=== PATIENT | female | born 1980 | race Caucasian/White ===

== ENCOUNTER → 2019-11-14 10:15 | Outpatient (BNVA) | payer OTHER, SELFPAY | PROVIDERS: Family Provider Internal Medicine; PCP Registered Nurse; Visit Provider Internal Medicine Rheumatology | DX: M25.50 Pain in unspecified joint (principal); Z79.899 Other long term (current) drug therapy; M79.7 Fibromyalgia; M77.11 Lateral epicondylitis, right elbow; Z87.59 Personal history of other complications of pregnancy, childbirth and the puerperium; R76.8 Other specified abnormal immunological findings in serum; Z79.1 Long term (current) use of non-steroidal anti-inflammatories (NSAID) | CPT/HCPCS: 36415; 80076; 81001; 82306; 82565; 82570; 84156; 85025; 85651; 86140; 86160; 86235; 99203 ==

== ENCOUNTER → 2020-01-02 09:49 | Outpatient (BNVA) | payer OTHER, SELFPAY | PROVIDERS: Family Provider Internal Medicine; PCP Registered Nurse; Visit Provider Internal Medicine Rheumatology | DX: M25.50 Pain in unspecified joint (principal); R76.8 Other specified abnormal immunological findings in serum; M79.7 Fibromyalgia; M77.11 Lateral epicondylitis, right elbow; Z79.1 Long term (current) use of non-steroidal anti-inflammatories (NSAID) | CPT/HCPCS: 99214 ==

== ENCOUNTER 2023-05-04 11:22 | Outpatient (CLI) | payer OTHER, SELFPAY ==
[2023-05-04 12:39] LABS: Basophils % 0.4 %; Eosinophils # 0.1 10^3/uL (0.0-0.8); Eosinophils % 1.4 %; Hematocrit 42.8 % (36-47); Lymphocytes # 2.4 10^3/uL (0.8-4.8); Mean Corpuscular HGB Conc 34.6 g/dL (30-55); Mean Corpuscular Hemoglobin 29.8 pg (27-33); Mean Corpuscular Volume 86.1 fl (85-98); Mean Platelet Volume 11.8 fL (7.4-10.4); Monocytes # 0.6 10^3/uL (0.2-0.9); Monocytes % 7.8 %; Neutrophils # 4.82 10^3/uL (1.8-7.7); Nucleated Red Blood Cells % 0 %; Platelet Count 206 10^3/cmm (157-399); Red Blood Count 4.97 10^6/uL (3.85-5.65); White Blood Count 8.03 10^3/uL (3.29-11.43)
[2023-05-04 12:58] LABS: Alanine Aminotransferase 37 U/L (0-33); Albumin Level 4.6 g/dL (3.5-5.2); Alkaline Phosphatase 70 U/L (35-105); Aspartate Amino Transferase 27 U/L (0-32); Glomerular Filtration Rate 109.1 mL/min (90-130); Total Bilirubin 0.5 mg/dL (0.15-1.2); Total Protein 7.6 g/dL (6.6-8.7)
[2023-05-05 14:46] LABS: Complement C3 122 mg/dL (90-180); Immunoglobulin IGG 1095 mg/dL (700-1600); Immunoglobulin IGM 114 mg/dL (40-230); Thyroid Stimulating Hormone 2.08 uIU/mL (0.27-4.20)
== END 2023-05-04 11:23 | disposition home or self-care (01) ==
LOC: LAB 11:25
PROVIDERS: PCP Registered Nurse; Visit Provider Internal Medicine Rheumatology
DX: R76.8 Other specified abnormal immunological findings in serum (principal); M79.7 Fibromyalgia; M32.9 Systemic lupus erythematosus, unspecified; B99.9 Unspecified infectious disease
CPT/HCPCS: 36415; 80076; 82565; 82784; 84439; 84443; 85025; 86140; 86160

== ENCOUNTER 2023-06-01 11:21 | Outpatient (CLI) | payer OTHER, SELFPAY ==
--- NOTE | 2023-06-01 11:27 | XR_ITS ---
WS: [id number] Lumbar spine, 3 views, 06/01/2023 Clinical Data: M54.9 - Dorsalgia, unspecified Comparison: None. Findings: No compression fractures or subluxation is seen. There is minimal anterior spurring L3-L5. No disc sp stephanie narrowing is seen. The transverse processes and SI joints are normal. There are cholecystectomy clips in the right upper quadrant. 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
--- NOTE | 2023-06-01 11:27 | XR_ITS ---
WS: [id number] Cervical spine, 3 views, 06/01/2023 Clinical Data: M54.9 - Dorsalgia, unspecified Comparison: None. Findings: No compression fractures are seen. The disc heights are normal. There is minimal anterior s purring at C5-C6 with disc space narrowing at C5-C6. There is no prevertebral soft tissue swelling. T he odontoid is unremarkable. The soft tissues of the neck and the lung apices are normal. Impression: Degenerative disc narrowing at C5-C6 with minimal anterior spurring.
--- NOTE | 2023-06-01 11:27 | XR_ITS ---
WS: [id number] Thoracic spine, 3 views, 06/01/2023 Clinical Data: M54.9 - Dorsalgia, unspecified Comparison: None. Findings: No compression fractures are seen. The disc heights are normal. There is a gentle dextroscoliosis. The paravertebral regions are normal. There are right upper quadra nt clips from a cholecystectomy. Impression: Minimal dextroscoliosis of the thoracic spine.
== END 2023-06-01 11:22 | disposition home or self-care (01) ==
LOC: RAD 11:24
PROVIDERS: PCP Registered Nurse; Visit Provider Internal Medicine Rheumatology
DX: M47.816 Spondylosis without myelopathy or radiculopathy, lumbar region (principal); M50.322 Other cervical disc degeneration at C5-C6 level; M41.9 Scoliosis, unspecified; M54.6 Pain in thoracic spine
CPT/HCPCS: 72040; 72072; 72100